=== PATIENT | female | born 1980 | race Caucasian/White ===

== ENCOUNTER 2019-05-09 13:28 | Emergency (ER) | payer MEDICAID ==
[~2019-05-09] VITALS: Ht 162.6 cm; Wt 53.5 kg
[2019-05-09 13:42] VITALS: BP 118/72
--- NOTE | 2019-05-09 13:52 | Emergency Room Report ---
History of Present Illness General Chief Complaint: Upper Extremity Injury Source: Patient Present Illness HPI 38-year-old female history of breast cancer, presents with right fifth digit pain on the right hand, patient states prior to arrival she slammed it against a door by accident, pain is aching nature aggravated with movement alleviated with rest severity is moderate Allergies: Coded Allergies: PENICILLINS (Verified Allergy, Unknown, 05/09/19) Patient History Past Medical History: see triage record Last Menstrual Period: 05/06/19 Now: No Reviewed Nursing Documentation: PMH: Agreed; PSxH: Agreed Nursing Documentation-PMH Past Medical History: No History, Except For Hx Cancer: Yes - Breast Cancer, R breast mastectomy Review of Systems All Other Systems: negative except mentioned in HPI Physical Exam Vital Signs Date Time Temp Pulse Resp B/P (MAP) Pulse Ox O2 Delivery O2 Flow Rate FiO2 05/09/19 13:42 98.2 80 20 118/72 (87) 98 Room Air Sp02 EP Interpretation: reviewed, normal General Appearance: well appearing, no apparent distress, alert Head: normocephalic, atraumatic Eyes: bilateral eye PERRL, bilateral eye EOMI Neck: supple, thyroid normal, supple/symm/no masses Musculoskeletal: normal inspection, other - Right hand: 2+ radial pulses mild swelling along the fifth digit, radial median ulnar nerve intact Neurologic: alert, oriented x3 Psychiatric: mood/affect normal Skin: no rash, warm/dry Procedures Splinting Splinting : Consent: Verbal Location: Right little finger Pre-Made Type: metal Splint: finger splint Pre-Proc Neuro Vasc Exam: normal Post-Proc Neuro Vasc Exam: normal Patient Tolerated: Well Complications: None Medical Decision Making Diagnostic Impression: Primary Impression: Contusion of finger, right Qualified Codes: S60.051A - Contusion of right little finger without damage to nail, initial encounter ER Course Patient with fifth digit right finger pain, no evidence of fracture on x-ray, will splint it recommend follow-up with Ortho Other X-Ray Diagnostic Results Other X-Ray Diagnostic Results : X-Ray ordered: right hand # of Views/Limited Vs Complete: 3 View Indication: Pain EP Interpretation: Yes Impression: No acute disease Electronically Signed by: Sunday Stiles MD Last Vital Signs Date Time Temp Pulse Resp B/P (MAP) Pulse Ox O2 Delivery O2 Flow Rate FiO2 05/09/19 13:42 98.2 80 20 118/72 (87) 98 Room Air Disposition: HOME, SELF-CARE Condition: Stable Referrals: Orthopedic Urgent Care Patient Instructions: Crush Injury, Fingers or Toes, [id number], Finger Sprain, [id number] Additional Instructions: The patient was provided with discharge instructions, notified to follow-up with a primary care doctor and or specialist in the next 24-48 hours, and to return to the ED if they have worsening of their symptoms. Please note that this report is being documented using [employer] technology. This can lead to erroneous entry secondary to incorrect interpretation by the dictating instrument. Sunday Stiles MD May 09, 2019 13:52
--- NOTE | 2019-05-09 14:30 | NUR ---
ER DISCHARGE NOTE: Pt was seen due to right hand injury. Patient is cleared to be discharged per PA, pt is aox4, on room air, with stable vital signs. pt left without signing DC papers but no prescription ordered, pt able to ambulate with steady gait. pt took all belongings. removed ID band.
--- NOTE | 2019-05-09 15:04 | Diagnostic Imaging Report ---
EXAM: XR Right Hand Complete, 3 or More Views CLINICAL HISTORY: PAIN TECHNIQUE: Frontal, lateral and oblique views of the right hand. COMPARISON: None FINDINGS: Bones/joints: No displaced fracture or dislocation identified. Joint space is maintained. No bony lesion. Soft tissues: Normal. IMPRESSION: No displaced fracture or dislocation identified.
== END 2019-05-09 14:30 | disposition home or self-care (01) ==
LOC: EMR 14:02
DX: S60.051A Contusion of right little finger without damage to nail, initial encounter (principal); Z88.0 Allergy status to penicillin; Z85.3 Personal history of malignant neoplasm of breast; Z90.11 Acquired absence of right breast and nipple; W22.8XXA Striking against or struck by other objects, initial encounter; Y92.9 Unspecified place or not applicable
CPT/HCPCS: 29130; 99283